=== PATIENT | male | born 1965 | race Caucasian/White ===

== ENCOUNTER 2022-05-19 10:38 | Emergency (ER) | payer BC ==
[2022-05-19] MEDS ORDERED: LORazepam 1 MG Tab PO ONE (11:35)
[2022-05-19] MEDS ORDERED: Sodium Chloride 0.9% 1,000 ML IV ONE (11:40)
[2022-05-19] MEDS ORDERED: Ketorolac 30 MG/ML SDV IVPUSH ONE (13:15)
[2022-05-19] MEDS ORDERED: Acetaminophen/oxyCODONE 325-5 MG Tab PO ONE (14:10)
[2022-05-19] MEDS ORDERED: Piperacillin/Tazobactam 4.5 GM in Sodium Chloride 0.9% 100 ML IV ONE (15:10)
[2022-06-11 12:16] VITALS: BP 163/108; PULSE 134
== END 2022-05-19 16:57 | disposition left against medical advice (07) ==
LOC: JD.ED 10:38
DX: M72.2 Plantar fascial fibromatosis (principal)
CPT/HCPCS: 36415; 73701; 80053; 83605; 83735; 85025; 86140; 87040; 87070; 87205; 96361; 96365; 96375; 99284; A9270; J1885; J2543; J7030

== ENCOUNTER 2024-06-08 10:32 | Emergency (ER) | payer MEDICARE, BC ==
[2024-06-08] MEDS: Sodium Chloride 0.9% 1,000 ML IV SCH (12:08)
[2024-06-08 12:10] LABS: BASOPHILS PERCENT AUTO 0.4 % (0.0-1.0); EOSINOPHILS ABSOLUTE AUTO 0.1 K/mm3 (0.0-0.4); EOSINOPHILS PERCENT AUTO 0.9 % (0.0-6.0); HEMATOCRIT 42.4 % (42.0-52.0); HEMOGLOBIN 14.5 gm/dl (14.0-18.0); IMMATURE GRAN ABSOLUTE AUTO 0.04 K/mm3 (0.00-0.05); IMMATURE GRAN PERCENT AUTO 0.4 % (0.0-0.4); LYMPHOCYTES ABSOLUTE AUTO 1.9 K/mm3 (1.0-4.8); LYMPHOCYTES PERCENT AUTO 20.9 % (24.0-44.0); MEAN CORPUSCULAR HEMOGLOBIN 29.3 pg (28.0-32.0); MEAN CORPUSCULAR HGB CONC 34.2 g/dl (32.0-36.0); MEAN CORPUSCULAR VOLUME 85.7 fl (83.0-99.0); MEAN PLATELET VOLUME 9.5 fl (9.4-12.4); MONOCYTES ABSOLUTE AUTO 0.6 K/mm3 (0.0-0.8); MONOCYTES PERCENT AUTO 6.2 % (0.0-8.0); NEUTROPHILS ABSOLUTE AUTO 6.6 K/mm3 (1.8-7.7); NEUTROPHILS PERCENT AUTO 71.2 % (41.0-71.0); PLATELET COUNT,PLT 287 K/mm3 (150-400); RED BLOOD CELL COUNT 4.95 M/mm3 (4.52-5.90); WHITE BLOOD CELL COUNT,WBC 9.22 K/mm3 (3.9-11.3)
[2024-06-08] MEDS: LORazepam 1 MG Tab PO ONE (12:12)
[2024-06-08 12:33] LABS: BARBITURATE SCREEN,URINE NEGATIVE (CUTOFF=200); BENZODIAZEPINES SCREEN,URINE NEGATIVE (CUTOFF=150); BUPRENORPHINE SCREEN,URINE NEGATIVE (CUTOFF=10); METHADONE SCREEN, URINE NEGATIVE (CUT0FF=200); METHAMPHETAMINES SCREEN, URINE NEGATIVE (CUTOFF=500); OXYCODONE SCREEN,URINE NEGATIVE (CUT0FF=100); THC SCREEN,URINE 20 NG/ML NEGATIVE (CUTOFF=50)
[2024-06-08 12:37] LABS: AMPHETAMINES SCREEN, URINE NEGATIVE (CUTOFF=500)
[2024-06-08 12:43] LABS: A/G RATIO 0.7 (1-2); ALBUMIN 3.5 g/dl (3.4-5.0); ANION GAP 18.6 (5-15); BILIRUBIN TOTAL 0.4 mg/dL (0.2-1.0); BUN/CREATININE RATIO 3.6 (14-18); CALCIUM 9.2 mg/dL (8.5-10.1); CREATININE 1.1 mg/dL (0.7-1.3); EST CRCL DRUG DOSING (CG) 77.96 mL/min; ETHANOL BLOOD MEDICAL 0.15 gm% (0.00); POTASSIUM,K 3.6 mEq/L (3.5-5.1); PROTEIN TOTAL,TP 8.3 g/dl (6.4-8.2); TSH 1.274 uIU/mL (0.358-3.74)
[2024-06-08 13:18] VITALS: BP 149/88; PULSE 98
== END 2024-06-08 13:13 | disposition home or self-care (01) ==
LOC: JD.ED 10:32
DX: F41.9 Anxiety disorder, unspecified (principal); F32.A Depression, unspecified; F17.210 Nicotine dependence, cigarettes, uncomplicated; I10 Essential (primary) hypertension; M19.90 Unspecified osteoarthritis, unspecified site; E11.9 Type 2 diabetes mellitus without complications; Z79.82 Long term (current) use of aspirin; Z79.899 Other long term (current) drug therapy; Z88.0 Allergy status to penicillin; Z88.8 Allergy status to other drugs, medicaments and biological substances; Z91.040 Latex allergy status; Z91.018 Allergy to other foods
CPT/HCPCS: 36415; 80053; 80143; 80179; 80306; 80307; 84443; 85025; 93005; 96360; 99284; J7030; 93010; A9270-GY

== ENCOUNTER 2025-01-18 16:48 | Emergency (ER) | payer BC, MEDICARE ==
[2025-01-18 17:18] VITALS: BP 157/95; PULSE 130
[2025-01-18] MEDS ORDERED: Insulin Isophane NPH, Human 100 Units/ML 10 ML Vial SUBCUT ONE (17:45)
[2025-01-18] MEDS: Insulin Regular, Human 100 Units/ML 10 ML Vial SUBCUT ONE (19:02)
[2025-01-19] MEDS ORDERED: Insulin Isophane NPH, Human 100 Units/ML 10 ML Vial SUBCUT ONE (17:30)
== END 2025-01-18 19:07 | disposition other institution (70) ==
LOC: JD.ED 16:48
DX: E11.65 Type 2 diabetes mellitus with hyperglycemia (principal); F10.120 Alcohol abuse with intoxication, uncomplicated; I10 Essential (primary) hypertension; Z88.8 Allergy status to other drugs, medicaments and biological substances; Z91.040 Latex allergy status; Z91.018 Allergy to other foods; Z79.82 Long term (current) use of aspirin; Z79.899 Other long term (current) drug therapy; Z79.84 Long term (current) use of oral hypoglycemic drugs; Y90.9 Presence of alcohol in blood, level not specified
CPT/HCPCS: 82947; 99283